=== PATIENT | female | born 1980 | race Caucasian/White ===

== ENCOUNTER 2024-11-17 09:34 | Outpatient (CLI) | payer OTHER, SELFPAY ==
--- NOTE | ~2024-11-17 | CT_ITS ---
Non-contrast CT scan of the Abdomen Clinical indication: Disorder of adrenal gland Technique: 2.5 mm axial scans were obtained through the abdomen without intravenous or oral contrast . Dose reduction technique was used on this scan by utilizing automated exposure control and iterativ e reconstruction technique. The dose-length product (DLP) was 808.80 mGy-cm. Findings: Images through the lung bases reveal partially imaged from calcified lingular granuloma. There are bilateral nonobstructing renal stones measuring 2 mm in size. The liver, spleen, pancreas, and adrenals appear normal. Small gallstones probably present. There is no aortic aneurysm. Visualized bowel loops are unremarkable. No ascites. Impression: No distinct adrenal abnormality evident. 2 mm bilateral nonobstructing renal stones. Cholelithiasis. Reviewed, dictated and finalized at [facility]. Impression: No distinct adrenal abnormality evident. 2 mm bilateral nonobstructing renal stones. Cholelithiasis.
== END 2024-11-17 09:35 | disposition home or self-care (01) ==
PROVIDERS: PCP Internal Medicine Endocrinology, Diabetes & Metabolism; Visit Provider Internal Medicine Endocrinology, Diabetes & Metabolism
DX: E27.9 Disorder of adrenal gland, unspecified (principal); N20.0 Calculus of kidney; K80.20 Calculus of gallbladder without cholecystitis without obstruction
CPT/HCPCS: 74150